=== PATIENT | female | born 1955 | race American Indian/Alaskan Native ===

== ENCOUNTER 2016-12-31 13:27 | Emergency (ER) | payer SELFPAY ==
[2016-12-31] MEDS ORDERED: NACL 0.9% 1000 ML 1,000 ML IV ONE ×2 (13:42→23:01)
[2016-12-31 14:22] LABS: Hematocrit 44.4 % (30.3-42.9); Hemoglobin 14.3 gm/dl (10.1-14.3); Mean Corpuscular HGB Conc 32 % (30-34); Mean Corpuscular Hemoglobin 28 pg (28-32); Mean Corpuscular Volume 88 fl (79-97); Platelet Count 253 K/mm3 (140-440); Red Blood Count 5.06 M/mm3 (3.65-5.03); Red Cell Distribution Width 14.1 % (13.2-15.2)
[2016-12-31 14:31] LABS: INR 0.98 (0.87-1.13)
[2016-12-31 14:32] LABS: Partial Thromboplastin Time 31.9 Sec. (24.2-36.6)
[2016-12-31 14:42] LABS: Alanine Aminotransferase 32 units/L (7-56); Albumin 4.4 g/dL (3.9-5); Albumin/Globulin Ratio 1.2 %; Alkaline Phosphatase 84 units/L (35-129); Anion Gap 21 mmol/L; BUN/Creatinine Ratio 14.28; Blood Urea Nitrogen 10 mg/dL (7-17); Calcium 10.5 mg/dL (8.4-10.2); Carbon Dioxide 24 mmol/L (22-30); Chloride 103.6 mmol/L (98-107); Glucose 103 mg/dL (65-100); Lipase 28 units/L (13-60); Potassium 4.9 mmol/L (3.6-5.0); Sodium 144 mmol/L (137-145); Total Protein 8.1 g/dL (6.3-8.2)
[2016-12-31 15:49] LABS: Bilirubin,Urine NEG (Negative); Blood,Urine LG (Negative); Ketones,Urine NEG (Negative); Leukocyte Esterase,Urine LG (Negative); Mucus,Urine FEW /HPF; Nitrite,Urine NEG (Negative); Urobilinogen,Urine < 2.0 mg/dL (<2.0)
[2016-12-31 16:16] LABS: Blastocytes % (Manual) 0 %; Diff Status Complete; RBC Morphology Normal
[2016-12-31] MEDS ORDERED: ZOFRAN IV ONE (21:24)
[2016-12-31] MEDS ORDERED: MORPHINE IV ONE (21:24)
--- NOTE | 2016-12-31 21:28 | Emergency Department Report ---
HPI - General Chief Complaint: GI Bleed Time Seen by Provider: 12/31/16 21:10 - HPI HPI: Room 3 The patient is a 61-year-old female presenting with a chief complaint of abdominal pain. The patient states her symptoms began 4 days ago with frequent diarrhea. The patient states she also had diffuse burning abdominal pain greatest in the right flank and right lower quadrant. Patient is to nausea but denies vomiting. Patient admits to a subjective fever. The patient states for the past 4 days she is also expansion rectal bleeding for the past 3 years she is experienced vaginal bleeding. Patient denies any recent antibiotic use Location: Abdomen, see above Duration: [see above] Quality: Burning Severity: 02/11 Modifying factors: [see above] Context: [see above] Mode of transportation: [not driving] ED Past Medical Hx - Past Medical History Hx Hypertension: Yes Hx Asthma: Yes Additional medical history: GI Bleed - Surgical History Past Surgical History?: No - Family History Family history: no significant - Social History Smoking Status: Never Smoker Substance Use Type: None - Medications Home Medications: Home Medications Medication Instructions Recorded Confirmed Last Taken Type Albuterol Sulfate [Ventolin HFA] 2 puff IH Q4H PRN 06/09/13 06/09/13 Unknown History Fluticasone Propionate [Flovent 100 mcg IH PRN PRN 06/09/13 06/09/13 Unknown History Diskus] guaiFENesin [Robitussin] 200 mg PO Q6H PRN 7 Days 06/18/13 Unknown Rx metFORMIN [Glucophage] 500 mg PO BIDDIAB 30 Days 06/18/13 Unknown Rx Albuterol *Only Ed* [Proventil 2.5 mg IH Q4HRT PRN #100 nebu 06/19/13 Unknown Rx 0.5% NEBS] Ciprofloxacin HCl [Cipro] 500 mg PO Q12H #10 tab 06/19/13 Unknown Rx Famotidine [Pepcid] 20 mg PO BID #60 tablet 06/19/13 Unknown Rx Prednisone 10 mg PO QDAY #25 tablet 06/19/13 Unknown Rx Carvedilol [Coreg] 12.5 mg PO BID 30 Days 04/23/16 Unknown Rx Triamter/Hctz 37.5-25 mg 1 tab PO QDAY #31 tablet 04/23/16 Unknown Rx [Maxzide-25] guaiFENesin [Mucinex] 600 mg PO Q6HR #20 tab.er.12h 04/23/16 Unknown Rx traMADol [Ultram 50 MG tab] 50 mg PO Q6HR PRN #10 tablet 04/23/16 Unknown Rx ED Review of Systems ROS: Stated complaint: ABD PAIN Other details as noted in HPI Comment: All other systems reviewed and negative Constitutional: fever (subjective) Eyes: denies: eye pain, eye discharge, vision change ENT: denies: ear pain, throat pain Respiratory: denies: cough, shortness of breath, wheezing Cardiovascular: denies: chest pain, palpitations Endocrine: no symptoms reported Gastrointestinal: abdominal pain, nausea, diarrhea. denies: vomiting Genitourinary: denies: urgency, dysuria, discharge Musculoskeletal: denies: back pain, joint swelling, arthralgia Skin: denies: rash, lesions Neurological: denies: headache, weakness, paresthesias Psychiatric: denies: anxiety, depression Hematological/Lymphatic: denies: easy bleeding, easy bruising Physical Exam - Physical Exam Vital Signs: Vital Signs 12/31/16 12/31/16 12/31/16 13:35 20:00 20:05 Temperature 98.3 F 98.4 F Pulse Rate 118 H 99 H Respiratory 20 20 20 Rate Blood Pressure 172/99 Blood Pressure 151/84 [Left] O2 Sat by Pulse 99 100 100 Oximetry Physical Exam: GENERAL: The patient is well-developed well-nourished female lying on stretcher not appearing to be in acute distress. [] HEENT: Normocephalic. Atraumatic. Extraocular motions are intact. Patient has moist mucous membranes. NECK: Supple. Trachea midline CHEST/LUNGS: Clear to auscultation. There is no respiratory distress noted. HEART/CARDIOVASCULAR: Regular. There is tachycardia. There is no gallop rub or murmur. ABDOMEN: Abdomen is soft, with tenderness to palpation in the epigastric, right upper quadrant, right lower quadrant and suprapubic region. Patient has normal bowel sounds. There is no abdominal distention. SKIN: There is no rash. There is no edema. There is no diaphoresis. NEURO: The patient is awake, alert, and oriented. The patient is cooperative. The patient has normal speech MUSCULOSKELETAL: There is no evidence of acute injury. ED Course Vital Signs 12/31/16 12/31/16 12/31/16 13:35 20:00 20:05 Temperature 98.3 F 98.4 F Pulse Rate 118 H 99 H Respiratory 20 20 20 Rate Blood Pressure 172/99 Blood Pressure 151/84 [Left] O2 Sat by Pulse 99 100 100 Oximetry ED Medical Decision Making - Lab Data Result diagrams: 12/31/16 13:58 12/31/16 13:58 Laboratory Tests 12/31/16 12/31/16 12/31/16 13:58 13:58 13:58 WBC 6.0 RBC 5.06 H Hgb 14.3 Hct 44.4 H MCV 88 MCH 28 MCHC 32 RDW 14.1 Plt Count 253 Lymph % (Auto) Sausage Wrapper Add Manual Diff Complete Total Counted 100 Seg Neutrophils % Sausage Wrapper Seg Neuts % (Manual) 30.0 L Band Neutrophils % 3.0 Lymphocytes % (Manual) 57.0 H Reactive Lymphs % (Man) 2.0 Monocytes % (Manual) 6.0 Eosinophils % (Manual) 1.0 Basophils % (Manual) 1.0 Metamyelocytes % 0 Myelocytes % 0 Promyelocytes % 0 Blast Cells % 0 Nucleated RBC % Not Reportable Seg Neutrophils # Man 1.8 Band Neutrophils # 0.2 Lymphocytes # (Manual) 3.4 Abs React Lymphs (Man) 0.1 Monocytes # (Manual) 0.4 Eosinophils # (Manual) 0.1 Basophils # (Manual) 0.1 Metamyelocytes # 0.0 Myelocytes # 0.0 Promyelocytes # 0.0 Blast Cells # 0.0 WBC Morphology Not Reportable Hypersegmented Neuts Not Reportable Hyposegmented Neuts Not Reportable Hypogranular Neuts Not Reportable Smudge Cells Not Reportable Toxic Granulation Not Reportable Toxic Vacuolation Not Reportable Dohle Bodies Not Reportable Pelger-Huet Anomaly Not Reportable Deborah Rods Not Reportable Platelet Estimate Appears normal Clumped Platelets Not Reportable Plt Clumps, EDTA Not Reportable Large Platelets Not Reportable Giant Platelets Not Reportable Platelet Satelliting Not Reportable Plt Morphology Comment Not Reportable RBC Morphology Normal Dimorphic RBCs Not Reportable Polychromasia Not Reportable Hypochromasia Not Reportable Poikilocytosis Not Reportable Anisocytosis Not Reportable Microcytosis Not Reportable Macrocytosis Not Reportable Spherocytes Not Reportable Pappenheimer Bodies Not Reportable Sickle Cells Not Reportable Target Cells Not Reportable Tear Drop Cells Not Reportable Ovalocytes Not Reportable Helmet Cells Not Reportable Jhaveri-Redmond Bodies Not Reportable [place] Rings Not Reportable Trenary Cells Not Reportable Bite Cells Not Reportable Crenated Cell Not Reportable Elliptocytes Not Reportable Acanthocytes (Spur) Not Reportable Rouleaux Not Reportable Hemoglobin C Crystals Not Reportable Schistocytes Not Reportable Malaria parasites Not Reportable Rajat Bodies Not Reportable Hem Pathologist Commnt No PT 12.9 INR 0.98 APTT 31.9 Sodium 144 Potassium 4.9 Chloride 103.6 Carbon Dioxide 24 Anion Gap 21 BUN 10 Creatinine 0.7 Estimated GFR > 60 BUN/Creatinine Ratio 14.28 Glucose 103 H Calcium 10.5 H Total Bilirubin 0.40 AST 23 ALT 32 Alkaline Phosphatase 84 Total Protein 8.1 Albumin 4.4 Albumin/Globulin Ratio 1.2 Lipase 28 Urine Color Urine Turbidity Urine pH Ur Specific [place] Urine Protein Urine Glucose (UA) Urine Ketones Urine Blood Urine Nitrite Urine Bilirubin Urine Urobilinogen Ur Leukocyte Esterase Urine WBC (Auto) Urine RBC (Auto) U Epithel Cells (Auto) Urine Mucus Blood Type Antibody Screen KESHA Antibody Screen 12/31/16 12/31/16 14:04 14:30 WBC RBC Hgb Hct MCV MCH MCHC RDW Plt Count Lymph % (Auto) Add Manual Diff Total Counted Seg Neutrophils % Seg Neuts % (Manual) Band Neutrophils % Lymphocytes % (Manual) Reactive Lymphs % (Man) Monocytes % (Manual) Eosinophils % (Manual) Basophils % (Manual) Metamyelocytes % Myelocytes % Promyelocytes % Blast Cells % Nucleated RBC % Seg Neutrophils # Man Band Neutrophils # Lymphocytes # (Manual) Abs React Lymphs (Man) Monocytes # (Manual) Eosinophils # (Manual) Basophils # (Manual) Metamyelocytes # Myelocytes # Promyelocytes # Blast Cells # WBC Morphology Hypersegmented Neuts Hyposegmented Neuts Hypogranular Neuts Smudge Cells Toxic Granulation Toxic Vacuolation Dohle Bodies Pelger-Huet Anomaly Deborah Rods Platelet Estimate Clumped Platelets Plt Clumps, EDTA Large Platelets Giant Platelets Platelet Satelliting Plt Morphology Comment RBC Morphology Dimorphic RBCs Polychromasia Hypochromasia Poikilocytosis Anisocytosis Microcytosis Macrocytosis Spherocytes Pappenheimer Bodies Sickle Cells Target Cells Tear Drop Cells Ovalocytes Helmet Cells Jhaveri-Redmond Bodies [place] Rings Trenary Cells Bite Cells Crenated Cell Elliptocytes Acanthocytes (Spur) Rouleaux Hemoglobin C Crystals Schistocytes Malaria parasites Rajat Bodies Hem Pathologist Commnt PT INR APTT Sodium Potassium Chloride Carbon Dioxide Anion Gap BUN Creatinine Estimated GFR BUN/Creatinine Ratio Glucose Calcium Total Bilirubin AST ALT Alkaline Phosphatase Total Protein Albumin Albumin/Globulin Ratio Lipase Urine Color Yellow Urine Turbidity Clear Urine pH 5.0 Ur Specific [place] 1.017 Urine Protein 30 mg/dl Urine Glucose (UA) Neg Urine Ketones Neg Urine Blood Lg Urine Nitrite Neg Urine Bilirubin Neg Urine Urobilinogen < 2.0 Ur Leukocyte Esterase Lg Urine WBC (Auto) 41.0 H Urine RBC (Auto) 43.0 U Epithel Cells (Auto) < 1.0 Urine Mucus Few Blood Type A POSITIVE Antibody Screen TNR KESHA Antibody Screen Negative - EKG Data -: EKG Interpreted by Me EKG shows normal: sinus rhythm Rate: tachycardia (110 bpm) - EKG Data When compared to previous EKG there are: previous EKG unavailable - Radiology Data Radiology results: report reviewed (CT abdomen and pelvis), image reviewed (CT abdomen and pelvis) CT abdomen and pelvis (read by radiologist)-severe colonic diverticulosis without signs of acute inflammation. 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 No definite signs of acute appendicitis. Probable multiple uterine leiomyomas. - Differential Diagnosis appendicitis, colitis, pyelonephritis Critical care attestation.: If time is entered above; I have spent that time in minutes in the direct care of this critically ill patient, excluding procedure time. ED Disposition Clinical Impression: Diverticulosis, Dehydration, Postmenopausal vaginal bleeding Disposition: -09 OP ADMIT IP TO THIS HOSP Is pt being admited?: Yes Does the pt Need Aspirin: No Condition: Fair Referrals: PRIMARY CARE, [Primary Care Provider] - 3-5 Days Forms: Accompanied Note Time of Disposition: 23:04 (hospitalist notified)
--- NOTE | 2016-12-31 22:33 | Cat Scan Report ---
FINAL REPORT PROCEDURE: CT abdomen and pelvis with contrast. TECHNIQUE: Computerized axial tomography of the abdomen and pelvis was performed after the IV injection of iodinated nonionic contrast. HISTORY: Right-sided abdominal pain, diarrhea. COMPARISON: No prior studies are available for comparison. FINDINGS: There is mild subsegmental atelectasis in the right middle lobe. There are no pleural effusions. The heart size is normal. The liver, spleen and pancreas appear normal. The gallbladder is present. The adrenal glands are not enlarged. Both kidneys appear normal in size and configuration. The abdominal aorta has a normal caliber. There is no retroperitoneal adenopathy. There is a retroaortic left renal vein. There are numerous diverticula scattered throughout the colon. There are no signs of acute diverticulitis. The appendix is mildly dilated, however there is air present throughout the appendix. There are no findings to suggest acute appendicitis. This is probably a congenital variation of the size of the appendix. The bladder appears normal. The uterus is enlarged and lobulated in contour. This suggests the presence of leiomyomas. The adnexal regions are unremarkable. The regional skeleton appears intact. IMPRESSION: Severe colonic diverticulosis without signs of acute inflammation. Enlargement of the appendix which is probably a congenital variant. No definite signs of acute appendicitis. Probable multiple uterine leiomyomas.
--- NOTE | 2017-01-01 01:14 | History and Physical Report ---
Medications and Allergies Allergies Allergy/AdvReac Type Severity Reaction Status Date / Time aspirin Allergy Vomiting Verified 06/08/13 16:00 Home Medications Medication Instructions Recorded Confirmed Last Taken Type Albuterol Sulfate [Ventolin HFA] 2 puff IH Q4H PRN 06/09/13 06/09/13 Unknown History Fluticasone Propionate [Flovent 100 mcg IH PRN PRN 06/09/13 06/09/13 Unknown History Diskus] guaiFENesin [Robitussin] 200 mg PO Q6H PRN 7 Days 06/18/13 Unknown Rx metFORMIN [Glucophage] 500 mg PO BIDDIAB 30 Days 06/18/13 Unknown Rx Albuterol *Only Ed* [Proventil 2.5 mg IH Q4HRT PRN #100 nebu 06/19/13 Unknown Rx 0.5% NEBS] Ciprofloxacin HCl [Cipro] 500 mg PO Q12H #10 tab 06/19/13 Unknown Rx Famotidine [Pepcid] 20 mg PO BID #60 tablet 06/19/13 Unknown Rx Prednisone 10 mg PO QDAY #25 tablet 06/19/13 Unknown Rx Carvedilol [Coreg] 12.5 mg PO BID 30 Days 04/23/16 Unknown Rx Triamter/Hctz 37.5-25 mg 1 tab PO QDAY #31 tablet 04/23/16 Unknown Rx [Maxzide-25] guaiFENesin [Mucinex] 600 mg PO Q6HR #20 tab.er.12h 04/23/16 Unknown Rx traMADol [Ultram 50 MG tab] 50 mg PO Q6HR PRN #10 tablet 04/23/16 Unknown Rx Ciprofloxacin HCl [Ciprofloxacin 500 mg PO Q12H #20 tab 01/01/17 Unknown Rx TAB] Exam - Constitutional Vitals: Temp Pulse Resp BP Pulse Ox 98.4 F 102 H 18 123/73 100 12/31/16 20:05 12/31/16 22:43 12/31/16 22:15 12/31/16 22:43 12/31/16 20:05 Results - Labs CBC & Chem 7: 12/31/16 13:58 12/31/16 13:58 Labs: Abnormal lab results 12/31/16 12/31/16 12/31/16 Range/Units 13:58 13:58 14:30 RBC 5.06 H (3.65-5.03) M/mm3 Hct 44.4 H (30.3-42.9) % Seg Neuts % (Manual) 30.0 L (40.0-70.0) % Lymphocytes % (Manual) 57.0 H (13.4-35.0) % Glucose 103 H (65-100) mg/dL Calcium 10.5 H (8.4-10.2) mg/dL Urine WBC (Auto) 41.0 H (0.0-6.0) /HPF
[2017-01-01 02:27] VITALS: BP 159/78
== END 2017-01-01 02:25 | disposition admitted as inpatient to this hospital (09) ==
LOC: ED 13:27
DX: K57.90 Diverticulosis of intestine, part unspecified, without perforation or abscess without bleeding (principal); E86.0 Dehydration; N95.0 Postmenopausal bleeding; I10 Essential (primary) hypertension; J45.909 Unspecified asthma, uncomplicated
CPT/HCPCS: 36415; 74177; 80053; 81001; 83690; 85007; 85025; 85610; 85730; 86850; 86900; 86901; 96361; 96374; 96375; 99284; J2270; J2405; J7030; Q9967; 93005; 93010

== ENCOUNTER 2017-01-01 13:29 | Emergency (ER) | payer SELFPAY ==
--- NOTE | 2017-01-01 15:41 | Emergency Department Report ---
Chief Complaint: Abdominal Pain Stated Complaint: ABDOMINAL PAIN/NV Time Seen by Provider: 01/01/17 15:35 - HPI History of Present Illness: PT c/o R flank pain x 4-5 days. PT states she came to the ED yesterday and last night she was going to be admitted but she states she does not know what happened and she was dc'd home with RX for antibiotics PT states she filled her antibiotics and has not started them. PT states her side is still hurting and she had a headache, so she returned to the ED - ROS Review of Systems: + vomit - phlegm + diarrhea + abd pain - Exam Physical Exam: PT looks well, non toxic. no cva tenderness rayshawn MSE screening note: Focused history and physical exam performed. Due to findings the following was ordered: labs ED Disposition for MSE Condition: Stable
[2017-01-01 15:56] LABS: Basophils % (Auto) 0.6 % (0.0-1.8); Eosinophils % (Auto) 0.6 % (0.0-4.3); Hematocrit 44.7 % (30.3-42.9); Hemoglobin 14.6 gm/dl (10.1-14.3); Mean Corpuscular HGB Conc 33 % (30-34); Mean Corpuscular Hemoglobin 28 pg (28-32); Mean Corpuscular Volume 86 fl (79-97); Platelet Count 262 K/mm3 (140-440); Red Blood Count 5.19 M/mm3 (3.65-5.03)
[2017-01-01 16:58] LABS: Bacteria,Urine 1+ /HPF (Negative); Bilirubin,Urine NEG (Negative); Blood,Urine LG (Negative); Ketones,Urine TR mg/dL (Negative); Leukocyte Esterase,Urine LG (Negative); Mucus,Urine FEW /HPF; Nitrite,Urine NEG (Negative); Urobilinogen,Urine < 2.0 mg/dL (<2.0)
[2017-01-01] MEDS ORDERED: XYLOCAINE 1% 20 mL ONE (17:30)
[2017-01-01] MEDS ORDERED: NACL 0.9% 500 ML IR ONE (17:41)
[2017-01-01 18:07] LABS: Alanine Aminotransferase 32 units/L (7-56); Albumin 4.7 g/dL (3.9-5); Albumin/Globulin Ratio 1.2 %; Alkaline Phosphatase 87 units/L (35-129); Anion Gap 22 mmol/L; BUN/Creatinine Ratio 8.88; Blood Urea Nitrogen 8 mg/dL (7-17); Calcium 10.3 mg/dL (8.4-10.2); Carbon Dioxide 23 mmol/L (22-30); Chloride 99.2 mmol/L (98-107); Glucose 106 mg/dL (65-100); Lipase 26 units/L (13-60); Potassium 4.2 mmol/L (3.6-5.0); Sodium 140 mmol/L (137-145); Total Protein 8.7 g/dL (6.3-8.2)
[2017-01-01] MEDS ORDERED: TYLENOL ONE (21:44)
[2017-01-01] MEDS: TYLENOL PO ONE (21:46)
--- NOTE | 2017-01-01 23:28 | Emergency Department Report ---
ED Abdominal Pain HPI - General Chief Complaint: Abdominal Pain Stated Complaint: ABDOMINAL PAIN/NV Time Seen by Provider: 01/01/17 15:35 Source: patient, EMS Mode of arrival: Ambulatory Limitations: No Limitations - History of Present Illness MD Complaint: abdominal pain -: days(s) (three) Location: diffuse Migration to: no migration Severity: moderate Severity scale (0 -10): 6 Quality: cramping Consistency: intermittent Improves With: vomiting Worsens With: eating Associated Symptoms: nausea, vomiting, diarrhea - Related Data Home Medications Medication Instructions Recorded Confirmed Last Taken Albuterol Sulfate [Ventolin HFA] 2 puff IH Q4H PRN 06/09/13 01/01/17 Unknown Fluticasone Propionate [Flovent 100 mcg IH PRN PRN 06/09/13 01/01/17 Unknown Diskus] Methocarbamol [Robaxin TAB] 750 mg PO Q6H 01/01/17 01/01/17 Unknown Previous Rx's Medication Instructions Recorded Last Taken Type Albuterol *Only Ed* [Proventil 2.5 mg IH Q4HRT PRN #100 nebu 06/19/13 Unknown Rx 0.5% NEBS] Carvedilol [Coreg] 12.5 mg PO BID 30 Days 04/23/16 Unknown Rx Triamter/Hctz 37.5-25 mg 1 tab PO QDAY #31 tablet 04/23/16 Unknown Rx [Maxzide-25] traMADol [Ultram 50 MG tab] 50 mg PO Q6HR PRN #10 tablet 04/23/16 Unknown Rx Ciprofloxacin HCl [Ciprofloxacin 500 mg PO Q12H #20 tab 01/01/17 Unknown Rx TAB] Ondansetron [Zofran Odt] 4 mg PO Q4-6H PRN #14 tab.rapdis 01/01/17 Unknown Rx Allergies Allergy/AdvReac Type Severity Reaction Status Date / Time aspirin Allergy Vomiting Verified 06/08/13 16:00 ED Review of Systems ROS: Stated complaint: ABDOMINAL PAIN/NV Other details as noted in HPI Comment: All other systems reviewed and negative Constitutional: denies: chills, fever Respiratory: denies: cough, shortness of breath, SOB with exertion Gastrointestinal: abdominal pain, nausea, vomiting, diarrhea ED Past Medical Hx - Past Medical History Previous Medical History?: Yes Hx Hypertension: Yes Hx Asthma: Yes Additional medical history: GI Bleed - Surgical History Past Surgical History?: No - Social History Smoking Status: Never Smoker Substance Use Type: Prescribed - Medications Home Medications: Home Medications Medication Instructions Recorded Confirmed Last Taken Type Albuterol Sulfate [Ventolin HFA] 2 puff IH Q4H PRN 06/09/13 01/01/17 Unknown History Fluticasone Propionate [Flovent 100 mcg IH PRN PRN 06/09/13 01/01/17 Unknown History Diskus] Albuterol *Only Ed* [Proventil 2.5 mg IH Q4HRT PRN #100 nebu 06/19/13 01/01/17 Unknown Rx 0.5% NEBS] Carvedilol [Coreg] 12.5 mg PO BID 30 Days 04/23/16 01/01/17 Unknown Rx Triamter/Hctz 37.5-25 mg 1 tab PO QDAY #31 tablet 04/23/16 01/01/17 Unknown Rx [Maxzide-25] traMADol [Ultram 50 MG tab] 50 mg PO Q6HR PRN #10 tablet 04/23/16 01/01/17 Unknown Rx Ciprofloxacin HCl [Ciprofloxacin 500 mg PO Q12H #20 tab 01/01/17 Unknown Rx TAB] Methocarbamol [Robaxin TAB] 750 mg PO Q6H 01/01/17 01/01/17 Unknown History Ondansetron [Zofran Odt] 4 mg PO Q4-6H PRN #14 tab.rapdis 01/01/17 Unknown Rx ED Physical Exam - General Limitations: No Limitations General appearance: alert, in no apparent distress - Eye Eye exam: Present: normal appearance - ENT ENT exam: Present: normal exam - Respiratory Respiratory exam: Present: normal lung sounds bilaterally. Absent: respiratory distress, rales, stridor - Cardiovascular Cardiovascular Exam: Present: tachycardia - GI/Abdominal GI/Abdominal exam: Present: soft. Absent: distended, tenderness, guarding - Back Exam Back exam: Present: normal inspection - Neurological Exam Neurological exam: Present: alert, oriented X3, CN II-XII intact - Skin Skin exam: Present: warm, normal color ED Course Vital Signs 01/01/17 01/01/17 01/01/17 15:34 21:46 21:48 Temperature 98.4 F 98 F Pulse Rate 118 H 110 H Respiratory 20 18 18 Rate Blood Pressure 156/103 160/101 O2 Sat by Pulse 98 Oximetry - Reevaluation(s) Reevaluation #1: 01/01/17 23:48 inform patient about her result from today and yesterday. Patient doesn't want iv fluids and stated that she will take po fluids. ED Medical Decision Making - Lab Data Result diagrams: 01/01/17 15:45 01/01/17 15:45 Critical care attestation.: If time is entered above; I have spent that time in minutes in the direct care of this critically ill patient, excluding procedure time. ED Disposition Clinical Impression: Gastroenteritis, UTI (urinary tract infection) Disposition: DC-01 TO HOME OR SELFCARE Is pt being admited?: No Condition: Stable Instructions: Abdominal Pain (ED) Referrals: PRIMARY CARE, [Primary Care Provider] - 3-5 Days
[2017-01-02 00:38] VITALS: BP 149/74
== END 2017-01-01 23:40 | disposition home or self-care (01) ==
LOC: ED 13:29
DX: K52.9 Noninfective gastroenteritis and colitis, unspecified (principal); N39.0 Urinary tract infection, site not specified; I10 Essential (primary) hypertension; J45.909 Unspecified asthma, uncomplicated
CPT/HCPCS: 36415; 80053; 81001; 83690; 85025